=== PATIENT | female | born 1990 | race Caucasian/White ===

== ENCOUNTER 2017-01-24 11:30 | Emergency (ER) | payer BC ==
[~2017-01-24] VITALS: Ht 170.2 cm; Wt 60.0 kg
[2017-01-24 11:32] VITALS: BP 136/64; PULSE 82; RESP 15; TEMP 98.4; O2SAT 97
[2017-01-24 13:14] LABS: GLUCOSE,URINE NEG (NEG); KETONE, URINE NEG (NEG); NITRITE,URINE NEG (NEG)
--- NOTE | 2017-01-24 13:14 | PD ---
HPI Chief Complaint: Related Problem Time Seen by Provider: 12:56 Travel History International Travel<30 days: No Contact w/Intl Traveler<30days: No Traveled to known affect area: No History of Present Illness HPI 26-year-old female complains of pink spotting with urination for today only starting about 15 minutes prior to ER arrival. She reports she is taking Macrobid for UTI. She reports ultrasound performed already as revealed intrauterine . She describes daily nausea and vomiting. She is 1 para 1. She is known to be 15 weeks starting today. [facility] Past Medical History Medical History: Denies Significant Hx Influenza Vaccination: No ?: LMP: 09/2016 Past Surgical History Surgical History: No Previous Surgery Social History Alcohol Use: No Tobacco Use: No Substance Use: No Allergies-Medications (Allergen,Severity, Reaction): Uncoded Allergies: SHELL FISH (Allergy, Severe, 01/24/17) SURGICAL STEEL (Adverse Reaction, Mild, "SENSITIVITY", 01/24/17) Reported Meds & Prescriptions Reported Meds & Active Scripts Active No Active Prescriptions or Reported Medications Review of Systems Except as stated in HPI: all other systems reviewed are Neg Physical Exam Narrative GENERAL: 26-year-old female pleasant well-nourished well-developed SKIN: Warm and dry. HEAD: Atraumatic. Normocephalic. EYES: Pupils equal and round. No scleral icterus. No injection or drainage. ENT: No nasal bleeding or discharge. Mucous membranes pink and moist. NECK: Trachea midline. No JVD. CARDIOVASCULAR: Regular rate and rhythm. RESPIRATORY: No accessory muscle use. Clear to auscultation. Breath sounds equal bilaterally. GASTROINTESTINAL: Abdomen soft, non-tender, nondistended. Hepatic and splenic margins not palpable. MUSCULOSKELETAL: Extremities without clubbing, cyanosis, or edema. No obvious deformities. NEUROLOGICAL: Awake and alert. No obvious cranial nerve deficits. Motor grossly within normal limits. Five out of 5 muscle strength in the arms and legs. Normal speech. PSYCHIATRIC: Appropriate mood and affect; insight and judgment normal. Data Data Last Documented VS Vital Signs Date Time Temp Pulse Resp B/P Pulse Ox O2 Delivery O2 Flow Rate FiO2 01/24/17 11:32 98.4 82 15 136/64 97 Vital signs reviewed Orders Urinalysis - C+S If Indicated (01/24/17 12:56) Ed Urine Pregnancytest Poc (01/24/17 13:07) Labs Laboratory Tests Test 01/24/17 12:55 Urine pH 7.0 Urine Protein NEG mg/dL Urine Glucose (UA) NEG mg/dL Urine Ketones NEG mg/dL Urine Occult Blood MOD Urine Nitrite NEG Urine Bilirubin NEG Urine Leukocyte Esterase SMALL MDM Medical Decision Making Medical Screen Exam Complete: Yes Emergency Medical Condition: Yes Differential Diagnosis IUP, UTI, ectopic , ov torsion, appendicitis, TOA, cervicitis, BV, Trichomoniasis, ov cyst, hernia, mittelschmerz, pain from menstruation Narrative Course Transabdominal ultrasound reveals intrauterine with heart rate of approximately 150. 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 Diagnosis Primary Impression: Threatened Referrals: Medical Records Administrator 2 days Additional Instructions: You have a choice when it comes to health care, and we are glad that you chose [facility]. Hopefully, we have met your expectations on today's visit. You are welcome to return to [facility] at any time, as we are committed to meeting the health care needs of our community. Med/Other Pt SpecificInfo: No Change to Meds Scripts No Active Prescriptions or Reported Meds Disposition: 01 DISCHARGE HOME Condition: Eliseo Corral MD Jan 24, 2017 13:14
[2017-01-24 13:16] LABS: BLOOD, URINE MOD (NEG)
[2017-01-24 13:35] LABS: BACTERIA, URINE OCC /hpf; METHOD OF COLLECTION CLEAN CATCH; SQUAMOUS EPITHELIAL CELL URINE 0-5 /hpf (0-5); URINE COLOR YELLOW (YELLW/STRAW); WBC, URINE 0-2 /hpf (0-5)
[2017-01-24 13:36] LABS: COMMENT (UR) CULT NOT INDICATED; CULTURE IF INDICATED CULT NOT INDICATED
== END 2017-01-24 13:31 | disposition home or self-care (01) ==
LOC: PHED 11:30
DX: O20.0 Threatened abortion (principal); O21.9 Vomiting of pregnancy, unspecified; Z3A.15 15 weeks gestation of pregnancy
CPT/HCPCS: 81001; 99283